=== PATIENT | male | born 1965 | race African-American/Black ===

== ENCOUNTER 2020-10-18 09:34 | Emergency (ER) | payer OTHER ==
[~2020-10-18] VITALS: Ht 182.9 cm; Wt 81.7 kg
[2020-10-18] MEDS ORDERED: NAPROSYN500 MG PO (14:01)
[2020-10-18 14:36] VITALS: BP 111/67
== END 2020-10-18 14:36 | disposition home or self-care (01) ==
LOC: ER 09:34
DX: S06.0X9A Concussion with loss of consciousness of unspecified duration, initial encounter (principal); S16.1XXA Strain of muscle, fascia and tendon at neck level, initial encounter; S70.01XA Contusion of right hip, initial encounter; S40.011A Contusion of right shoulder, initial encounter; S39.012A Strain of muscle, fascia and tendon of lower back, initial encounter; F17.210 Nicotine dependence, cigarettes, uncomplicated; Y08.89XA Assault by other specified means, initial encounter; Y93.89 Activity, other specified; Y92.89 Other specified places as the place of occurrence of the external cause; Y99.8 Other external cause status